=== PATIENT | female | born 1945 | race Two or more races ===

== ENCOUNTER 2018-04-07 12:29 | Outpatient (CLI) | payer OTHER ==
[~2018-04-07 12:29] MED LIST: SYNTHROID125 MCG PO; TIZANIDINE HCL2 MG PO
== END 2018-04-07 12:31 | disposition home or self-care (01) ==
LOC: MAMO-SONO 12:29
DX: Z12.31 Encounter for screening mammogram for malignant neoplasm of breast (principal); N64.89 Other specified disorders of breast

== ENCOUNTER 2023-06-26 10:44 | Outpatient (CLI) | payer OTHER | END 2023-06-26 10:54 | disposition home or self-care (01) | LOC: RAD 10:44 | PROVIDERS: ATTEND Family Medicine | DX: M25.561 Pain in right knee (principal); M25.562 Pain in left knee; G89.11 Acute pain due to trauma; M06.9 Rheumatoid arthritis, unspecified ==